=== PATIENT | female | born 1990 | race African-American/Black ===

== ENCOUNTER 2016-06-13 12:11 | Emergency (ER) | payer OTHER ==
[~2016-06-13] VITALS: Ht 175.3 cm; Wt 81.6 kg
[2016-06-13] MEDS ORDERED: ACETAMINOPHEN 325 MG TABLET ONE (13:19)
[2016-06-13] MEDS ORDERED: ACETAMINOPHEN 325 MG TABLET PO ONE (13:30)
[2016-06-13] MEDS ORDERED: HYDROCODONE/APAP 5/325MG 1 EACH TABLET PO ONE (14:00)
[2016-06-13] MEDS ORDERED: HYDROCODONE/APAP 5/325MG 1 EACH TABLET ONE (14:12)
[2016-06-13 15:35] VITALS: BP 118/61
== END 2016-06-13 15:42 | disposition home or self-care (01) ==
LOC: ER 12:13
DX: S39.012A Strain of muscle, fascia and tendon of lower back, initial encounter (principal); M62.838 Other muscle spasm; S80.02XA Contusion of left knee, initial encounter
CPT/HCPCS: 72100-TC; 73510-TC; 73562; 84703-TC; A4606; Z7610